=== PATIENT | male | born 1985 | race Two or more races ===

== ENCOUNTER 2017-04-29 19:24 | Emergency (ER) | payer SELFPAY | END 2017-04-29 22:05 | disposition home or self-care (01) | LOC: ER 19:26 | DX: S63.611A Unspecified sprain of left index finger, initial encounter (principal); W22.8XXA Striking against or struck by other objects, initial encounter; Y93.89 Activity, other specified; Y92.89 Other specified places as the place of occurrence of the external cause; Y99.0 Civilian activity done for income or pay | CPT/HCPCS: 73140-TC ==